=== PATIENT | female | born 1985 | race Caucasian/White ===

== ENCOUNTER → 2017-01-14 | Outpatient (CLI) | payer BC ==
[~2017-01-14] MED LIST: AZIT250T81 PO; SULF-221 PO
[2017-01-14 16:48] VITALS: BP 133/82
--- NOTE | 2017-01-14 16:48 | Urgent Care T Sheet Gen (E) ---
Intake General Temperature (Fahrenheit): 97.4 Pulse: 93 Blood Pressure Systolic: 133 Blood Pressure Diastolic: 82 Respirations: 20 SPO2: 97 Description of Symptoms Patient presents with 2 complaints. First, patient states she slipped on her driveway on Wednesday and scraped her knee. States it hurts with movement. Has been using H2O2. Took the bandage off this afternoon and noticed some purulent drainage which prompted her to come in. States the surrounding skin is also red and warm. Next, patient notes dental pain which started last night. Patient has poor dentition and is hoping to have her teeth pulled this summer. Notes pain in the R lower jaw and a foul taste in her mouth. No meds. History of Present Illness Home Meds Active Scripts Azithromycin (Zithromax Z-Iggy)6 Tab/Pkt [id number] Mg PO SEE INSTRUCTIONS #6 TAB Ref 0 Day One: Take 2 tablets by mouth Days Two-Five: Take 1 tablet by mouth Prov:SAIRA MASSEY 02/06/16 Respiratory Constitutional Symptoms: No syptoms reported EENTM: Mouth Pain Respiratory: No symptoms reported Cardiovascular: No symptoms reported Skin: Other (abrasion to L knee) All Other Systems Reviewed Remaining Systems: All other systems reviewed with negative findings Physical Exam Physical Exam General Appearance: WD/WN No apparent distress Eyes, Ears, Nose, Throat Ex: Other (examination of mouth reveals poor dentition. there appears to be a cavity along the back two molars along the R lower jaw. there is some mild swelling to the outer jaw.) Neck Exam: SuppleNo Lymphadenopathy Extremity Exam: Full range of motion (in L knee however stretching/pulling of the skin causes pain.) Abrasion (examination of the L anterior knee reveals an abrasion. the abrasion is moist and some purulent drainage is seen.) Neurologic/Psychiatric Exam: No sensory deficits Departure Urgent Care Impression Impression: Primary Impression: Abrasion of knee, left, infected Qualified Code: S80.212A - Abrasion, left knee, initial encounter Additional Impression: Pain due to dental caries Departure Disposition: HOME OR SELF-CARE Condition: Stable Referrals: ZI LYNN MD (PCP) Additional Instructions: I have started the patient on Bactrim for treatment of the skin abrasion. Hopeful this will help with the dental infection as well. I covered the abrasion with Bacitracin and a non-stick bandage. Instructed her to keep the area covered until morning. She may then shower and keep the area open to air to help dry it out. The abrasion may take some time to heal simply because it is located over a joint. Return if no better despite treatment Patient understands DC instructions. All questions were answered. Scripts Sulfamethoxazole/Trimethoprim (Sulfamethoxazole/Trimethoprim DS 800mg/160mg)1 Each Tablet1 Each PO BID #14 TAB Prov:SAIRA MASSEY 01/14/17 End of report . SAIRA MASSEY Jan 14, 2017 16:48
== END ==
LOC: MHUC 16:24
PROVIDERS: ATTEND Physician Assistant
DX: S80.212A Abrasion, left knee, initial encounter (principal); K02.9 Dental caries, unspecified; W01.0XXA Fall on same level from slipping, tripping and stumbling without subsequent striking against object, initial encounter; Y92.008 Other place in unspecified non-institutional (private) residence as the place of occurrence of the external cause
CPT/HCPCS: 99213